=== PATIENT | male | born 1965 | race Two or more races ===

== ENCOUNTER → 2020-11-26 08:00 | Outpatient (CLI) | payer OTHER | END | disposition home or self-care (01) | LOC: PPH VACUNA 08:00 | DX: Z23 Encounter for immunization (principal) ==

== ENCOUNTER 2021-04-25 08:08 | Outpatient (CLI) | payer OTHER | END 2021-04-25 08:10 | disposition home or self-care (01) | LOC: PPH VACUNA 08:08 | PROVIDERS: ATTEND Emergency Medicine Pediatric Emergency Medicine | DX: Z23 Encounter for immunization (principal) ==

== ENCOUNTER 2025-01-03 06:50 | Inpatient (IN) | payer OTHER ==
[~2025-01-03] VITALS: Ht 175.3 cm; Wt 89.4 kg
[2025-01-03] MEDS ORDERED: CARVEDILOL ER40 MG (06:56)
[2025-01-03] MEDS ORDERED: ALDACTONE25 MG (06:56)
[2025-01-03] MEDS ORDERED: LASIX20 MG (06:56)
[2025-01-03] MEDS ORDERED: PLAVIX75 MG (06:57)
[2025-01-03] MEDS ORDERED: JARDIANCE10 MG (06:57)
[2025-01-03] MEDS ORDERED: COZAAR25 MG (06:57)
[2025-01-03] MEDS ORDERED: ELIQUIS5 MG (06:57)
[2025-01-03] MEDS ORDERED: TAMS0.4C (06:57)
[2025-01-03] MEDS ORDERED: ATORVASTATIN CA10 MG (06:58)
[2025-01-03 09:34] LABS: INR 1.49; PARTIAL THROMBOPLASTIN TIME 32.4 SECONDS (22.0-34.0)
[2025-01-03 09:44] LABS: PROTHROMBIN TIME 15.8 SECONDS (9.0-11.5)
[2025-01-03 09:51] LABS: ALBUMIN 3.1 gm/dL (3.4-5.0); BILIRUBIN TOTAL 1.46 mg/dL (0.3-1.2); CALCIUM 8.8 mg/dL (8.5-10.1); CREATININE SERUM 2.82 mg/dL (0.70-1.30); GFR 23.04; GLOBULINA 3.5 G/DL (2.4-3.5); POTASSIUM 4.07 mEq/L (3.5-5.1); TOTAL PROTEIN 6.6 gm/dL (6.4-8.2)
[2025-01-03 10:01] LABS: URINE APPEARANCE Clear; URINE BILIRRUBIN Negative (NEGATIVE); URINE BLOOD Trace; URINE COLOR Yellow; URINE KETONE Negative (NEGATIVE); URINE LEUKOCYTE Negative; URINE NITRATE Negative; URINE PROTEIN 30 (NEGATIVE); URINE UROBILINOGEN 0.2 E.U./dl
[2025-01-03 10:03] LABS: HEMOGLOBIN 11.8 g/dL (13.7-17.5); RED BLOOD COUNT 4.48 M/uL (4.63-6.08)
[2025-01-03 10:04] LABS: BASO % 0.9 % (0.1-1.2); EOS # 0.47 (0.04-0.54); EOS % 4.8 % (0.7-7.0); HEMATOCRIT 37.4 % (40.1-51.0); LYMPH % 17.4 % (19.3-53.1); MEAN CORPUSCULAR HEMOGLOBIN 26.3 pg (25.6-32.2); MONO # 0.86 (0.24-0.82); MONO % 8.8 % (4.7-12.5); NEUT # 6.63 (1.56-6.13); NEUT % 67.7 % (34.0-71.1); PLATELET COUNT 203 K/uL (163-369); RED CELL DISTRIBUTION WIDTH 16.7 % (11.6-14.4)
[2025-01-03 10:05] LABS: URINE BACTERIA 53.8 uL (0.0-1933); URINE CAST 1.61 uL (0.0-1.40); URINE EPITHELIAL CELLS 4.2 uL (0.0-38.8); URINE WBC 2.3 uL (0.0-23.2)
[2025-01-03 10:21] LABS: URINE GLUCOSE 100 MG/DL (NEGATIVE)
[2025-01-03 10:24] LABS: COVID-19 AG NEGATIVE (NEGATIVE)
[2025-01-03 10:25] LABS: INFLUENZA A AG NEGATIVE (NEGATIVE)
[2025-01-03] MEDS ORDERED: FUROsemide 40 MG/4 ML VIAL IV ONE (10:45)
[2025-01-03] MEDS ORDERED: FUROsemide 40 MG/4 ML VIAL ONE (11:01)
[2025-01-03] MEDS ORDERED: IPRATROPIUM BROMIDE 0.5 MG/2.5 ML AMPUL.NEB IH SCH (18:16)
[2025-01-03] MEDS ORDERED: FUROsemide 20 MG/2 ML VIAL IV SCH (18:17)
[2025-01-03] MEDS ORDERED: ACETAMINOPHEN 500 MG GEL..CAP PO PRN (18:30)
[2025-01-03] MEDS ORDERED: FUROsemide 20 MG/2 ML VIAL ONE (18:32)
[2025-01-03 19:03] VITALS: BP 151/96; O2SAT 96
[2025-01-03 19:23] LABS: MAGNESIUM 2.7 mg/dL (1.8-2.4); PHOSPHOROUS 4.1 mg/dL (2.5-4.9)
[2025-01-03 20:40] LABS: ABG PO2 113.8 mmHg (80-100); ABG pCO2 31.9 mmHg (35-45); BASE EXCESS -4.3 mmol/l; BICARBONATE 19.3 mmol/l (23-25); SaO2 98.3 %; Tco2 20.3 mmol/l; allen test SATISFACTORY; mode NASAL CANNULA; o2 28 %; puncture site RADIAL LEFT
[2025-01-03] MEDS ORDERED: CARVEDILOL 12.5 MG TABLET PO SCH (21:00)
[2025-01-03 21:52] VITALS: BP 122/90; O2SAT 92
[2025-01-04 03:00] VITALS: BP 134/92; O2SAT 98
[2025-01-04] MEDS ORDERED: APIXABAN 5 MG TABLET PO SCH (05:00)
[2025-01-04 08:00] VITALS: BP 120/67
[2025-01-04] MEDS ORDERED: 0.9 % SODIUM CHLORIDE 10 ML VIAL IJ ONE (08:39)
[2025-01-04] MEDS ORDERED: ATORVASTATIN CALCIUM 40 MG TABLET PO SCH (09:00)
[2025-01-04] MEDS ORDERED: FAMOTIDINE/PF 20 MG in 0.9 % SODIUM CHLORIDE 8 ML IV PUSH SCH (09:00)
[2025-01-04] MEDS ORDERED: TAMSULOSIN HCL 0.4 MG CAP PO SCH (09:00)
[2025-01-04] MEDS ORDERED: GUAIFENESIN/DEXTROMETHORPHAN 100MG/10ML BLIST.PACK PO NR (14:00)
[2025-01-04] MEDS ORDERED: SPIRONOLACTONE 25 MG TABLET PO NR (14:00)
[2025-01-04] MEDS ORDERED: METHYLPREDNISOLONE SOD SUCC 40 MG VIAL IV NR (14:00)
[2025-01-04] MEDS ORDERED: BENZONATATE 100 MG CAPSULE PO SCH (17:00)
[2025-01-04 19:06] VITALS: BP 130/80
[2025-01-04] MEDS ORDERED: METHYLPREDNISOLONE SOD SUCC 40 MG VIAL IV SCH (21:00)
[2025-01-04] MEDS ORDERED: LORATADINE 10 MG TABLET PO SCH (21:00)
[2025-01-04] MEDS ORDERED: GUAIFENESIN/DEXTROMETHORPHAN 100MG/10ML BLIST.PACK PO SCH (21:00)
[2025-01-04] MEDS ORDERED: FLUTICASONE PROPIONATE 50 MCG SPRAY NASAL SCH (21:00)
[2025-01-05 03:52] VITALS: BP 150/85
[2025-01-05 08:45] VITALS: BP 132/88; O2SAT 99
[2025-01-05] MEDS ORDERED: AMIODARONE HCL 200 MG TABLET PO SCH (09:00)
[2025-01-05] MEDS ORDERED: CLOPIDOGREL BISULFATE 75 MG TABLET PO SCH (09:00)
[2025-01-05] MEDS ORDERED: SPIRONOLACTONE 25 MG TABLET PO SCH (09:00)
[2025-01-05] MEDS ORDERED: CARVEDILOL 25 MG TABLET PO SCH (09:00)
[2025-01-05] MEDS ORDERED: LOSARTAN POTASSIUM 100 MG TABLET PO SCH (09:00)
[2025-01-05] MEDS ORDERED: EMPAGLIFLOZIN 10 MG TABLET PO SCH ×2 (12:00→17:00)
[2025-01-05 12:57] LABS: ALBUMIN 3.1 gm/dL (3.4-5.0); BILIRUBIN TOTAL 1.16 mg/dL (0.3-1.2); CALCIUM 8.8 mg/dL (8.5-10.1); CREATININE SERUM 2.82 mg/dL (0.70-1.30); GFR 23.04; GLOBULINA 3.2 G/DL (2.4-3.5); POTASSIUM 4.12 mEq/L (3.5-5.1); TOTAL PROTEIN 6.3 gm/dL (6.4-8.2)
[2025-01-05 18:50] VITALS: BP 113/84; O2SAT 97
[2025-01-05 19:52] VITALS: O2SAT 98
[2025-01-06] VITALS: BP 114/83; O2SAT 97
[2025-01-06] MEDS ORDERED: DEXTROSE 50 % IN WATER 0.5 G/ML VIAL IV PRN (06:45)
[2025-01-06] MEDS ORDERED: INSULIN LISPRO 1,000 UNIT/10 ML UNITS SUBCUTANEO PRN (06:45)
[2025-01-06 07:54] VITALS: BP 117/75
[2025-01-07] MEDS ORDERED: FAMOtidine 20 MG TABLET PO SCH (09:00)
== END 2025-01-06 16:02 | disposition home or self-care (01) | DRG 292 ==
LOC: ER 06:50 → EDBD 07:45 → MEDJ 18:39
PROVIDERS: General Practice; Internal Medicine; ADMIT Internal Medicine; ATTEND Internal Medicine
PROC: BT41ZZZ Ultrasonography of Right Kidney (ICD-10-PCS; principal; 2025-01-03)
PROC: B24BYZZ Ultrasonography of Heart with Aorta using Other Contrast (ICD-10-PCS; 2025-01-03)
PROC: 4A12X4Z Monitoring of Cardiac Electrical Activity, External Approach (ICD-10-PCS; 2025-01-03)
DX: I50.9 Heart failure, unspecified (principal); N17.9 Acute kidney failure, unspecified; E11.9 Type 2 diabetes mellitus without complications; Z79.4 Long term (current) use of insulin; J40 Bronchitis, not specified as acute or chronic; I50.20 Unspecified systolic (congestive) heart failure

== ENCOUNTER 2025-01-09 01:24 | Inpatient (IN) | payer OTHER ==
[~2025-01-09] VITALS: Ht 175.3 cm; Wt 89.4 kg
[~2025-01-09 01:24] MED LIST: ALDACTONE25 MG; ATORVASTATIN CA10 MG; CARVEDILOL ER40 MG; COZAAR25 MG; ELIQUIS5 MG; JARDIANCE10 MG; LASIX20 MG; PLAVIX75 MG; TAMS0.4C
[2025-01-09] MEDS ORDERED: LASIX40 MG (01:59)
--- NOTE | 2025-01-09 01:59 | NUR ---
PACIENTE FEMENINA ALERTA Y ORIENTADA X3, REFIERE DIFICULTAD PARA RESPIAR, DISTENCION ABDOMINAL Y TOS.
[2025-01-09] MEDS ORDERED: FUROsemide 40 MG/4 ML VIAL IV STA (02:39)
[2025-01-09] MEDS ORDERED: NITROGLYCERIN 250 ML IV SCH ×2 (02:45→05:30)
[2025-01-09] MEDS ORDERED: FUROsemide 20 MG/2 ML VIAL ONE ×2 (02:48→13:07)
[2025-01-09] MEDS ORDERED: FUROsemide 20 MG/2 ML VIAL IV STA (02:51)
[2025-01-09 03:17] LABS: BASO % 0.4 % (0.1-1.2); EOS # 0.45 (0.04-0.54); EOS % 3.9 % (0.7-7.0); HEMATOCRIT 39.5 % (40.1-51.0); HEMOGLOBIN 12.5 g/dL (13.7-17.5); LYMPH # 1.55 (1.18-3.74); LYMPH % 13.5 % (19.3-53.1); MEAN CORPUSCULAR HEMOGLOBIN 26.2 pg (25.6-32.2); MONO # 0.86 (0.24-0.82); MONO % 7.5 % (4.7-12.5); NEUT % 74.3 % (34.0-71.1); PLATELET COUNT 220 K/uL (163-369); RED BLOOD COUNT 4.77 M/uL (4.63-6.08); RED CELL DISTRIBUTION WIDTH 17.2 % (11.6-14.4)
[2025-01-09 03:34] LABS: INR 1.27; PARTIAL THROMBOPLASTIN TIME 28.8 SECONDS (22.0-34.0); PROTHROMBIN TIME 13.6 SECONDS (9.0-11.5)
[2025-01-09 03:38] LABS: ALBUMIN 3.2 gm/dL (3.4-5.0); BILIRUBIN TOTAL 1.38 mg/dL (0.3-1.2); CALCIUM 8.7 mg/dL (8.5-10.1); CREATININE SERUM 3.1 mg/dL (0.70-1.30); GFR 20.65; GLOBULINA 3.6 G/DL (2.4-3.5); POTASSIUM 4.32 mEq/L (3.5-5.1); TOTAL PROTEIN 6.8 gm/dL (6.4-8.2)
--- NOTE | 2025-01-09 05:00 | NUR ---
SE ORIENTA PTE SOBRE TX A SEGUIR, EL MISMO REFIERE ENTENDER. SE ADA MUESTRA DE LAB, SE CANALIZA Y SE ADMINISTRA MED DIANDRA ORDEN MEDICA. SE COLOCA DRIP DE TRIDIL 50MG/250ML A 3MLS/HR
[2025-01-09] MEDS ORDERED: NITROGLYCERIN IN 5 % DEXTROSE 50 MG/250 ML BOTTLE IV ONE (05:19)
[2025-01-09 06:25] LABS: ABG PH 7.411 (7.35-7.45); ABG PO2 94.7 mmHg (80-100); BICARBONATE 19.5 mmol/l (23-25); SaO2 97.3 %; Tco2 20.4 mmol/l; allen test SATISFACTORY; mode ROOM AIR; o2 21 %; puncture site RADIAL LEFT
[2025-01-09 06:26] LABS: ABG pCO2 31.4 mmHg (35-45)
[2025-01-09] MEDS ORDERED: FAMOTIDINE/PF 20 MG/2 ML VIAL IV SCH (11:06)
[2025-01-09] MEDS ORDERED: LOSARTAN POTASSIUM 100 MG TABLET PO SCH (11:10)
[2025-01-09] MEDS ORDERED: JARDIANCE 10 MG PO SCH (11:10)
[2025-01-09] MEDS ORDERED: SPIRONOLACTONE 25 MG TABLET PO SCH (11:10)
[2025-01-09] MEDS ORDERED: AMIODARONE HCL 200 MG TABLET PO SCH (11:11)
[2025-01-09] MEDS ORDERED: GUAIFENESIN 600 MG TABLET.SA PO SCH (11:12)
[2025-01-09] MEDS ORDERED: DEXTROSE 50 % IN WATER 0.5 G/ML DISP.SYRIN IV PRN (11:15)
[2025-01-09] MEDS ORDERED: INSULIN LISPRO 1,000 UNIT/10 ML UNITS SUBCUTANEO PRN (11:15)
[2025-01-09] MEDS ORDERED: ACETAMINOPHEN 500 MG GEL..CAP PO PRN (11:30)
[2025-01-09] MEDS ORDERED: NITROGLYCERIN IN 5 % DEXTROSE 250 ML IV SCH (11:30)
[2025-01-09] MEDS ORDERED: FUROsemide 20 MG/2 ML VIAL IV SCH (13:00)
[2025-01-09] MEDS ORDERED: BENZONATATE 100 MG CAPSULE PO SCH (13:00)
[2025-01-09] MEDS ORDERED: BENZONATATE 100 MG CAPSULE PO ONE (13:06)
[2025-01-09] MEDS ORDERED: FAMOTIDINE/PF 20 MG/2 ML VIAL ONE (13:07)
[2025-01-09] MEDS ORDERED: ATORVASTATIN CALCIUM 40 MG TABLET PO SCH (17:00)
[2025-01-09] MEDS ORDERED: CARVEDILOL 25 MG TABLET PO SCH (21:00)
[2025-01-09] MEDS ORDERED: TAMSULOSIN HCL 0.4 MG CAP PO SCH (21:00)
[2025-01-09 21:41] VITALS: O2SAT 97
[2025-01-10] VITALS (8 sets, daily range): BP systolic 124–131; BP diastolic 80–87; O2SAT 90–98
[2025-01-10 06:51] LABS: BASO % 0.5 % (0.1-1.2); EOS # 0.59 (0.04-0.54); EOS % 6.9 % (0.7-7.0); HEMOGLOBIN 11.5 g/dL (13.7-17.5); LYMPH # 1.46 (1.18-3.74); LYMPH % 17.1 % (19.3-53.1); MEAN CORPUSCULAR HEMOGLOBIN 27.2 pg (25.6-32.2); MONO # 0.79 (0.24-0.82); MONO % 9.3 % (4.7-12.5); NEUT # 5.63 (1.56-6.13); NEUT % 65.8 % (34.0-71.1); PLATELET COUNT 189 K/uL (163-369); RED BLOOD COUNT 4.23 M/uL (4.63-6.08); RED CELL DISTRIBUTION WIDTH 17.2 % (11.6-14.4)
[2025-01-10 08:42] LABS: BILIRUBIN TOTAL 1.43 mg/dL (0.3-1.2); CALCIUM 8.6 mg/dL (8.5-10.1); CREATININE SERUM 2.58 mg/dL (0.70-1.30); GFR 25.53; GLOBULINA 3.4 G/DL (2.4-3.5); MAGNESIUM 2.5 mg/dL (1.8-2.4); PHOSPHOROUS 3.2 mg/dL (2.5-4.9); POTASSIUM 4.18 mEq/L (3.5-5.1); TOTAL PROTEIN 6.4 gm/dL (6.4-8.2); TSH 2.42 uIU/mL (0.358-3.74)
[2025-01-10] MEDS ORDERED: CLOPIDOGREL BISULFATE 75 MG TABLET PO SCH (09:00)
[2025-01-10] MEDS ORDERED: PIPERACILLIN/TAZOBACTAM SODIUM 2.25 GM in DEXTROSE 5 % IN WATER 50 ML IV SCH (09:00)
[2025-01-10 09:34] LABS: INFLUENZA A AG NEGATIVE (NEGATIVE); INFLUENZA B AG NEGATIVE (NEGATIVE)
[2025-01-11] VITALS (7 sets, daily range): BP systolic 100–130; BP diastolic 71–89; O2SAT 90–99
[2025-01-11 07:08] LABS: ALBUMIN 2.8 gm/dL (3.4-5.0); CALCIUM 8.4 mg/dL (8.5-10.1); CREATININE SERUM 2.3 mg/dL (0.70-1.30); GFR 29.15; PHOSPHOROUS 3.4 mg/dL (2.5-4.9); POTASSIUM 3.84 mEq/L (3.5-5.1)
[2025-01-11] MEDS ORDERED: BUMETANIDE 1 MG TABLET PO SCH (09:00)
[2025-01-12] VITALS (8 sets, daily range): BP systolic 118–127; BP diastolic 77–88; O2SAT 97–100
[2025-01-12] MEDS ORDERED: AZITHROMYCIN 500 MG TABLET PO SCH (11:00)
[2025-01-13] VITALS (8 sets, daily range): BP systolic 124–138; BP diastolic 87–104; O2SAT 94–98
[2025-01-13 07:07] LABS: BASO % 0.2 % (0.1-1.2); EOS # 0.94 (0.04-0.54); EOS % 9.1 % (0.7-7.0); HEMATOCRIT 37.7 % (40.1-51.0); HEMOGLOBIN 11.6 g/dL (13.7-17.5); LYMPH # 1.92 (1.18-3.74); LYMPH % 18.6 % (19.3-53.1); MEAN CORPUSCULAR HEMOGLOBIN 26.3 pg (25.6-32.2); MONO # 0.92 (0.24-0.82); MONO % 8.9 % (4.7-12.5); NEUT # 6.46 (1.56-6.13); NEUT % 62.8 % (34.0-71.1); PLATELET COUNT 171 K/uL (163-369); RED BLOOD COUNT 4.41 M/uL (4.63-6.08); RED CELL DISTRIBUTION WIDTH 17.6 % (11.6-14.4)
[2025-01-13 07:43] LABS: CALCIUM 8.9 mg/dL (8.5-10.1); CREATININE SERUM 2.22 mg/dL (0.70-1.30); GFR 30.37; MAGNESIUM 2.7 mg/dL (1.8-2.4); PHOSPHOROUS 3.1 mg/dL (2.5-4.9); POTASSIUM 4.48 mEq/L (3.5-5.1)
[2025-01-13] MEDS ORDERED: CEFTRIAXONE SODIUM 2,000 MG VIAL ONE (08:04)
[2025-01-13] MEDS ORDERED: CEFTRIAXONE SODIUM 2,000 MG in 0.9 % SODIUM CHLORIDE 100 ML IV SCH (09:00)
[2025-01-13] MEDS ORDERED: AZITHROMYCIN 500 MG TABLET PO SCH (17:00)
[2025-01-14] VITALS (7 sets, daily range): BP systolic 118–134; BP diastolic 76–93; O2SAT 92–100
[2025-01-15] VITALS (7 sets, daily range): BP systolic 116; BP diastolic 86–89; O2SAT 94–100
[2025-01-16 01:31] VITALS: BP 117/70; O2SAT 99
[2025-01-16 06:50] LABS: ALBUMIN 3.1 gm/dL (3.4-5.0); BILIRUBIN TOTAL 1.04 mg/dL (0.3-1.2); CALCIUM 8.9 mg/dL (8.5-10.1); CREATININE SERUM 2.7 mg/dL (0.70-1.30); GFR 24.22; GLOBULINA 3.3 G/DL (2.4-3.5); PHOSPHOROUS 3.9 mg/dL (2.5-4.9); POTASSIUM 4.52 mEq/L (3.5-5.1); TOTAL PROTEIN 6.4 gm/dL (6.4-8.2)
[2025-01-16 08:46] VITALS: BP 119/79; O2SAT 97
[2025-01-16 09:18] VITALS: O2SAT 99
== END 2025-01-16 12:35 | disposition home or self-care (01) | DRG 291 ==
LOC: ER 01:37 → MEDI 13:04
PROVIDERS: General Practice; Internal Medicine; Internal Medicine Geriatric Medicine; Internal Medicine Nephrology; ADMIT Internal Medicine; ATTEND Internal Medicine
PROC: 4A12X4Z Monitoring of Cardiac Electrical Activity, External Approach (ICD-10-PCS; principal; 2025-01-09)
DX: I50.23 Acute on chronic systolic (congestive) heart failure (principal); J18.1 Lobar pneumonia, unspecified organism; B20 Human immunodeficiency virus [HIV] disease; I13.0 Hypertensive heart and chronic kidney disease with heart failure and stage 1 through stage 4 chronic kidney disease, or unspecified chronic kidney disease; N17.9 Acute kidney failure, unspecified; I42.8 Other cardiomyopathies; I48.20 Chronic atrial fibrillation, unspecified; E11.22 Type 2 diabetes mellitus with diabetic chronic kidney disease; N18.30 Chronic kidney disease, stage 3 unspecified; E78.5 Hyperlipidemia, unspecified; Z87.891 Personal history of nicotine dependence

== ENCOUNTER 2025-03-30 19:20 | Inpatient (IN) | payer OTHER ==
[~2025-03-30] VITALS: Ht 152.4 cm; Wt 81.6 kg
[~2025-03-30 19:20] MED LIST changes: +LASIX40 MG
[2025-03-30] MEDS ORDERED: NITROGLYCERIN IN 5 % DEXTROSE 50 MG/250 ML KIT IV SCH (19:45)
[2025-03-30 20:18] LABS: BASO % 0.2 % (0.1-1.2); EOS # 0.27 (0.04-0.54); EOS % 3.4 % (0.7-7.0); LYMPH # 1.47 (1.18-3.74); LYMPH % 18.4 % (19.3-53.1); MONO # 0.61 (0.24-0.82); MONO % 7.6 % (4.7-12.5); NEUT # 5.62 (1.56-6.13); NEUT % 70.2 % (34.0-71.1)
[2025-03-30 20:21] LABS: INR 1.37
[2025-03-30 20:26] LABS: RED CELL DISTRIBUTION WIDTH 22.8 % (11.6-14.4)
[2025-03-30 20:27] LABS: ALT/SGPT 47.0 U/L (12-78); AST/SGOT 26.0 U/L (15-37); BILIRUBIN TOTAL 1.96 mg/dL (0.3-1.2); BUN CREA RATIO 16.0 (7.0-25.0); CREATININE SERUM 2.95 mg/dL (0.70-1.30); GFR 21.87; GLOBULINA 3.4 G/DL (2.4-3.5); GLUCOSE FASTING 116.0 mg/dL (65-100); LDH 293.0 U/L (87-241); OSMOLALITY SERUM 298.0 MOSM/KG (275-295); PHOSPHOKINASE CREATININE 87.0 U/L (39-308)
[2025-03-30 20:50] LABS: URINE APPEARANCE Clear; URINE BILIRRUBIN Negative (NEGATIVE); URINE BLOOD Negative; URINE COLOR Yellow; URINE GLUCOSE Negative (NEGATIVE); URINE KETONE Negative (NEGATIVE); URINE LEUKOCYTE Negative; URINE NITRATE Negative; URINE PROTEIN Trace (NEGATIVE); URINE UROBILINOGEN 1.0 E.U./dl
[2025-03-30 20:54] LABS: URINE CAST 1.61 uL (0.0-1.40)
[2025-03-30 21:10] LABS: URINE BACTERIA 2.3 uL (0.0-1933); URINE EPITHELIAL CELLS 0.7 uL (0.0-38.8); URINE RBC 1.6 uL (0.0-20.8); URINE WBC 0.9 uL (0.0-23.2)
[2025-03-30 21:12] LABS: COVID-19 AG NEGATIVE (NEGATIVE)
[2025-03-30] MEDS ORDERED: AMIODARONE HCL 200 MG TABLET PO SCH (21:37)
[2025-03-30] MEDS ORDERED: ACETAMINOPHEN 500 MG GEL..CAP PO PRN (21:45)
[2025-03-30 23:14] VITALS: BP 135/93; O2SAT 97
[2025-03-31] VITALS (19 sets, daily range): BP systolic 120–153; BP diastolic 73–104; O2SAT 94–99
[2025-03-31] MEDS ORDERED: APIXABAN 5 MG TABLET PO SCH (05:00)
[2025-03-31] MEDS ORDERED: NITROGLYCERIN IN 5 % DEXTROSE 250 ML IV SCH (06:30)
[2025-03-31] MEDS ORDERED: ATORVASTATIN CALCIUM 10 MG TABLET PO SCH (09:00)
[2025-03-31] MEDS ORDERED: FAMOTIDINE/PF 20 MG in 0.9 % SODIUM CHLORIDE 8 ML IV PUSH SCH (09:00)
[2025-03-31] MEDS ORDERED: TAMSULOSIN HCL 0.4 MG CAP PO SCH (09:00)
[2025-03-31] MEDS ORDERED: SPIRONOLACTONE 25 MG TABLET PO SCH (09:00)
[2025-04-01] VITALS (7 sets, daily range): BP systolic 136–147; BP diastolic 97–108; O2SAT 90–99
[2025-04-01 08:25] LABS: BASO % 0.3 % (0.1-1.2); EOS # 0.29 (0.04-0.54); EOS % 4.5 % (0.7-7.0); LYMPH # 1.18 (1.18-3.74); LYMPH % 18.2 % (19.3-53.1); MONO # 0.50 (0.24-0.82); MONO % 7.7 % (4.7-12.5); NEUT # 4.45 (1.56-6.13); NEUT % 68.8 % (34.0-71.1); RED CELL DISTRIBUTION WIDTH 22.6 % (11.6-14.4)
[2025-04-02] VITALS (8 sets, daily range): BP systolic 151–158; BP diastolic 54–104; O2SAT 89–99
[2025-04-02 08:50] LABS: ALT/SGPT 35.0 U/L (12-78); AST/SGOT 19.0 U/L (15-37); BILIRUBIN TOTAL 2.3 mg/dL (0.3-1.2); BUN CREA RATIO 19.0 (7.0-25.0); CREATININE SERUM 2.36 mg/dL (0.70-1.30); GFR 28.3; GLOBULINA 2.9 G/DL (2.4-3.5); GLUCOSE FASTING 82.0 mg/dL (65-100); OSMOLALITY SERUM 299.0 MOSM/KG (275-295)
[2025-04-03] VITALS: O2SAT 90
[2025-04-03 01:07] VITALS: BP 142/102; O2SAT 99
[2025-04-03 06:09] VITALS: O2SAT 90
[2025-04-03 08:18] VITALS: BP 126/86
[2025-04-03 08:31] LABS: BILIRUBIN TOTAL 2.38 mg/dL (0.3-1.2); BUN CREA RATIO 15.0 (7.0-25.0); CREATININE SERUM 2.36 mg/dL (0.70-1.30); GFR 28.3; GLOBULINA 3.1 G/DL (2.4-3.5); GLUCOSE FASTING 75.0 mg/dL (65-100); OSMOLALITY SERUM 298.0 MOSM/KG (275-295)
[2025-04-03 08:32] LABS: ALT/SGPT 33.0 U/L (12-78); AST/SGOT 19.0 U/L (15-37)
[2025-04-03] MEDS ORDERED: EMPAGLIFLOZIN 10 MG TABLET PO SCH (09:00)
[2025-04-03] MEDS ORDERED: BUMETANIDE 1 MG TABLET PO SCH (09:00)
[2025-04-03] MEDS ORDERED: AMIODARONE HCL 200 MG TABLET PO SCH (09:00)
[2025-04-03] MEDS ORDERED: METOPROLOL SUCCINATE 25 MG TAB.SR.24H PO SCH (09:00)
[2025-04-03 09:21] VITALS: O2SAT 96
[2025-04-03 13:23] VITALS: O2SAT 96
== END 2025-04-03 13:43 | disposition home or self-care (01) | DRG 291 ==
LOC: ER 19:20 → MEDI 22:14 → ICU-2 22:14 → MEDI 03-31 17:16
PROVIDERS: General Practice; Internal Medicine; Internal Medicine Nephrology; ADMIT Internal Medicine; ATTEND Internal Medicine
PROC: B24BZZZ Ultrasonography of Heart with Aorta (ICD-10-PCS; 2025-03-30)
PROC: 4A12X4Z Monitoring of Cardiac Electrical Activity, External Approach (ICD-10-PCS; principal; 2025-03-31)
DX: I13.0 Hypertensive heart and chronic kidney disease with heart failure and stage 1 through stage 4 chronic kidney disease, or unspecified chronic kidney disease (principal); I50.23 Acute on chronic systolic (congestive) heart failure; N17.9 Acute kidney failure, unspecified; E11.22 Type 2 diabetes mellitus with diabetic chronic kidney disease; N18.9 Chronic kidney disease, unspecified; Z79.4 Long term (current) use of insulin; I48.91 Unspecified atrial fibrillation; E78.5 Hyperlipidemia, unspecified